=== PATIENT | female | born 1995 | race Caucasian/White ===

== ENCOUNTER 2018-06-18 16:50 | Emergency (ER) | payer OTHER ==
[2018-06-18 17:15] VITALS: BMI 21.9
--- NOTE | 2018-06-18 17:48 | PDOC ---
Attending Attestation - HPI HPI: 06/18/18 19:25 The patient is a 23-year-old female, A2, 17 weeks , with past medical history significant for Hepatitis B and 2 prior (16 weeks and 18 weeks) presents to the emergency department with abdominal pain. The patient reports pain to the suprapubic region since yesterday, that worsened earlier today. The patient states the pain is cramping and pressure in character, with an increase in pain post voiding. The patient indicates the pain is intermittent , stays for a while then goes away, with the severity of 4/10. The patient reports an additional concern of yeast infection for the past 2 days, no relief with cream with vaginal discharge and dysuria, denies vaginal bleeding or hematuria. Allergies: NKA Social history: No past or present use of tobacco, alcohol or recreational drug use reported. 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 MFM: Dr. Sung @ [facility]. The patient reports last appointment was 2 days ago, where she had an ultrasound and cervix measured, states everything was normal. - Physicial Exam PE: 06/18/18 19:00 GENERAL: The patient is in no acute distress. HEAD: Normal with no signs of trauma. EYES: PERRLA, EOMI, sclera anicteric, conjunctiva clear. ENT: Ears normal, nares patent, oropharynx clear without exudates. Moist mucous membranes. NECK: Normal range of motion, supple without lymphadenopathy, JVD, or masses. LUNGS: Breath sounds equal, clear to auscultation bilaterally. No wheezes, and no crackles. HEART:Regular rate and rhythm, normal S1 and S2 without murmur, rub or gallop. ABDOMEN: (+) Mild suprapubic tenderness, gravid abdomen. Soft, normoactive bowel sounds. No guarding, no rebound. No masses palpable. EXTREMITIES: Normal range of motion, no edema. No clubbing or cyanosis. No erythema, or tenderness. NEUROLOGICAL: Cranial nerves II through XII grossly intact. Normal speech. No focal neurological deficits. MUSCULOSKELETAL: Back non-tender to palpation, no CVA tenderness SKIN: Warm, Dry, normal turgor, no rashes or lesions noted. - Medical Decision Making 06/18/18 19:00 Documentation prepared by Desi Burt, acting as senior medical transcriptionist for Marline Schroeder MD. <Desi Burt - Last Filed: 06/18/18 19:25> - Resident Resident Name: Raymundo Marin - ED Attending Attestation I have performed the following: I have examined & evaluated the patient, The case was reviewed & discussed with the resident, I agree w/resident's findings & plan, Exceptions are as noted - Medical Decision Making 06/18/18 20:30 Laboratory Tests 06/18/18 06/18/18 06/18/18 18:04 18:04 18:04 WBC 9.8 Hgb 10.8 Hct 31.1 L D Plt Count 209 D BUN 9 Creatinine 0.4 L Beta HCG, Quant 52959.2 Urine Ketones Negative Urine Blood Negative Urine Nitrite Negative Ur Leukocyte Esterase 2+ H D Urine WBC (Auto) 109 Urine RBC (Auto) 2 Ur Epithelial Cells Rare Urine Bacteria Rare 23 yo F presenting to the ER with a complaint of suprapubic pain No flank pain No hematuria No vomiting on examination: suprapubic tenderness, no CVA tenderness Labs reveal UTI US 06/18/18 21:28 IMPRESSION: Normal single intrauterine with an average uterine age ( AUA) age of 17 weeks 2 days and a heart rate of 136 BPM. The study is otherwise unremarkable. Clinical impression: UTI, initial presentation follow up with OB AND MFM specialist Return to the ER for any other concerns or complaints <Marline Schroeder - Last Filed: 06/18/18 21:54>
--- NOTE | 2018-06-18 17:48 | PDOC ---
History of Present Illness - General Chief Complaint: Pain Stated Complaint: STOMACH PAIN/17 WKS - History of Present Illness Initial Comments: The patient is a 23F at 17wks by LMP w/ a PMH of HBV who presents to the ED for evaluation of lower abdominal pressure. The patient states that she has had 2 days of suprapubic pressure that is intermittent, radiates to her back, and is worse after she urinates. She endorses associated dysuria, urgency, and frequency. She denies fevers/chills, chest pain, SOB, rash, or sensation. Patient was seen by her MFM OBGYN on . Per the patient, there were no concerns. The patient has a history of spontaneous AB in the past. The patient presented with RLQ pressure in 2014 3wks s/p spontaneous AB and was found to have retention of products of conception. MFM: at [facility]: Dr. Kendra Green 06/18/18 20:45 Past History - Past Medical History Allergies/Adverse Reactions: Allergies Allergy/AdvReac Type Severity Reaction Status Date / Time No Known Allergies Allergy Verified 06/18/18 17:10 Home Medications: Ambulatory Orders Cephalexin Monohydrate [Keflex -] 500 mg PO BID 10 Days #20 capsule 06/18/18 Miconazole Nitrate [Monistat-7] 100 mg PV HS 7 Days #7 supp.vag 06/18/18 Tenofovir Disoproxil Fumarate [Viread] 300 mg PO DAILY 06/18/18 COPD: No - Reproductive History (#): 1 Para: 0 Spontaneous : 0 - Suicide/Smoking/Psychosocial Hx Smoking History: Never smoked Hx Alcohol Use: No Drug/Substance Use Hx: No Substance Use Type: None Review of Systems - Review of Systems Able to Perform ROS?: Yes Comments:: GENERAL/CONSTITUTIONAL: No fever or chills. No weakness HEAD, EYES, EARS, NOSE AND THROAT: No change in vision. No ear pain or discharge. No sore throat CARDIOVASCULAR: No chest pain or shortness of breath RESPIRATORY: No cough, wheezing, or hemoptysis GASTROINTESTINAL: No nausea, vomiting, diarrhea or constipation GENITOURINARY: per HPI MUSCULOSKELETAL: No joint or muscle swelling or pain. No neck or back pain SKIN: No rash NEUROLOGIC: No headache, vertigo, loss of consciousness, or change in strength/ sensation ENDOCRINE: No increased thirst. No abnormal weight change HEMATOLOGIC/LYMPHATIC: No anemia, easy bleeding, or history of blood clots ALLERGIC/IMMUNOLOGIC: No hives or skin allergy 06/18/18 17:51 Is the patient limited Spanish proficient: No *Physical Exam - Vital Signs Last Vital Signs Temp Pulse Resp BP Pulse Ox 99.3 F 80 20 111/55 L 99 06/18/18 17:10 06/18/18 17:10 06/18/18 17:10 06/18/18 17:10 06/18/18 17:10 - Physical Exam Comments: GENERAL: Awake, alert, and fully oriented, in no acute distress HEAD: No signs of trauma, normocephalic, atraumatic EYES: PERRL, EOMI, sclera anicteric, conjunctiva clear ENT: Hearing grossly normal, nares patent, oropharynx clear without exudates. Moist mucosa NECK: Normal ROM, supple, no lymphadenopathy LUNGS: No distress, speaks full sentences, clear to auscultation bilaterally HEART:Regular rate and rhythm, normal S1 and S2, no murmurs appreciated, peripheral pulses normal and equal bilaterally ABDOMEN: Soft, mild suprapubic TTP without guarding or rebound, normoactive bowel sounds. No guarding, no rebound. No masses EXTREMITIES : Normal inspection, Normal range of motion, no edema. No clubbing or cyanosis NEUROLOGICAL: Cranial nerves II through XII grossly intact. Normal speech, normal gait, no focal sensorimotor deficits SKIN: Warm, Dry, normal turgor, no rashes or lesions noted 06/18/18 17:52 ED Treatment Course - LABORATORY CBC & Chemistry Diagram: 06/18/18 18:04 06/18/18 18:04 Medical Decision Making - Medical Decision Making The patient is a 23F at 17w by LMP who presents for evaluation of suprapubic abdominal pain ED Course CMP, CBC, Beta-quant, UA, UCx Transabdominal pelvic US Patient states pain controlled at this time No leukocytosis Lytes wnl UA concerning for UTI -Will treat w/ Keflex 500mg PO BID for 10d 06/18/18 18:34 Pending U/S read for Dispo Plan for D/C if without acute finding with OB f/u Patient reports pain is well controlled Patient verbalized understanding U/S significant for single live intrauterine at 17w2d by US No acute pathology Dispo: Home w/ OBGYN f/u 06/18/18 20:04 *DC/Admit/Observation/Transfer Diagnosis at time of Disposition: Urinary tract infection affecting , Candidiasis of vagina during Abdominal pain Qualifiers: Abdominal location: lower abdomen, unspecified Qualified Code(s): R10.30 - Lower abdominal pain, unspecified - Discharge Dispostion Disposition: HOME Condition at time of disposition: Stable Decision to Admit order: No - Prescriptions Prescriptions: Cephalexin Monohydrate [Keflex -] 500 mg PO BID 10 Days #20 capsule Miconazole Nitrate [Miconazole 7] 100 mg VG DAILY 7 Days #7 supp.vag - Referrals Referrals: Joanne Shaver MD [Staff Physician] - - Patient Instructions Printed Discharge Instructions: DI for Abdominal Pain -- Early Additional Instructions: You were seen in the Emergency Room today for abdominal pain and pain with urination. You were found to have a urinary tract infection. Please review the handout provided at discharge. An antibiotic was sent to the pharmacy that you specified as well as an antifungal. Please take as directed. Follow up with your OBGYN within the next 1-3 days. Return to the Emergency Department if you develop fevers/chills, worsening symptoms, or any new concerning symptoms. - Post Discharge Activity
[2018-06-18 18:22] LABS: HEMATOCRIT 31.1 % (32.4-45.2); HEMOGLOBIN 10.8 GM/dL (10.7-15.3); MCH 31.1 pg (25.7-33.7); MCHC 34.7 g/dl (32.0-36.0); MEAN CELL VOLUME 89.6 fl (80-96); MEAN PLT VOLUME 10.1 fl (7.5-11.1); PLATELET COUNT 209 K/MM3 (134-434); RBC 3.47 M/mm3 (3.60-5.2); RDW 13.2 % (11.6-15.6); WHITE BLOOD COUNT 9.8 K/mm3 (4.0-10.0)
[2018-06-18 18:34] LABS: URINE APPEARANCE SLCLOUDY; URINE BILIRUBIN NEGATIVE (<2.0 mg/dL); URINE COLOR YELLOW; URINE GLUCOSE (UA) NEGATIVE (NEGATIVE); URINE KETONE NEGATIVE (NEGATIVE); URINE NITRITE NEGATIVE (NEGATIVE); URINE PROTEIN NEGATIVE (NEGATIVE); URINE UROBILINOGEN NEGATIVE mg/dL (0.2-1.0)
[2018-06-18 18:42] LABS: URINE LEUK ESTERASE 2+ (NEGATIVE)
[2018-06-18 18:46] LABS: EPI CELLS RARE /HPF (FEW); URINE BACTERIA RARE /hpf (NONE SEEN); URINE HYALINE CAST 3 /lpf; URINE MUCUS RARE
[2018-06-18 19:15] LABS: ALBUMIN 2.9 g/dl (3.4-5.0); ALK PHOS 59 U/L (45-117); ANION GAP 9 MMOL/L (8-16); BILIRUBIN,TOTAL 0.2 mg/dL (0.2-1); BLOOD UREA NITROGEN 9 mg/dL (7-18); CALCIUM 8.7 mg/dL (8.5-10.1); CHLORIDE 106 mmol/L (98-107); CO2 25 mmol/L (21-32); CREATININE 0.4 mg/dL (0.55-1.3); GLUCOSE,RANDOM 86 mg/dL (74-106); SGOT/AST 28 U/L (15-37); SGPT/ALT 64 U/L (13-61); SODIUM 140 mmol/L (136-145); TOT PROT 6.6 g/dl (6.4-8.2)
[2018-06-18] MEDS ORDERED: CEPHALEXIN MONOHYDRATE 500 MG CAPSULE (UD) PO ONE (20:11)
[2018-06-18] MEDS ORDERED: CEPHALEXIN MONOHYDRATE 500 MG CAPSULE (UD) ONE (20:22)
[2018-06-18 21:55] VITALS: BP 105/66; PULSE 72; TEMP 98
== END 2018-06-18 21:32 | disposition home or self-care (01) ==
LOC: JER 16:50
DX: O26.891 Other specified pregnancy related conditions, first trimester (principal); O23.32 Infections of other parts of urinary tract in pregnancy, second trimester; O98.812 Other maternal infectious and parasitic diseases complicating pregnancy, second trimester; B37.3 Candidiasis of vulva and vagina; Z3A.17 17 weeks gestation of pregnancy
CPT/HCPCS: 36415; 76815-TC; 80053; 81003; 81015; 84702; 85027; 87086; 99283-25

== ENCOUNTER 2018-11-17 04:40 | Inpatient (IN) | payer OTHER ==
[2018-11-17] MEDS: ELECTROLYTE-148 SOLN 1,000 ML IV SCH ×3 (05:00→11:43)
[2018-11-17 05:30] LABS: BASO % 0.3 % (0-2.0); EOS % 0.7 % (0-4.5); HEMATOCRIT 34.6 % (32.4-45.2); HEMOGLOBIN 11.7 GM/dL (10.7-15.3); MCH 31.3 pg (25.7-33.7); MCHC 33.9 g/dl (32.0-36.0); MEAN CELL VOLUME 92.4 fl (80-96); MEAN PLT VOLUME 9.4 fl (7.5-11.1); MONO % 6.1 % (3.8-10.2); NEUT % 73.9 % (42.8-82.8); PLATELET COUNT 286 K/MM3 (134-434); RBC 3.74 M/mm3 (3.60-5.2); RDW 14.2 % (11.6-15.6); WHITE BLOOD COUNT 12.6 K/mm3 (4.0-10.0)
[2018-11-17 05:44] LABS: INR 0.91 (0.83-1.09); PROTHROMBIN TIME (PATIENT) 10.7 SEC (9.7-13.0)
[2018-11-17] MEDS ORDERED: BUTORPHANOL TARTRATE 1 MG/ML VIAL ONE ×2 (05:45→05:46)
[2018-11-17 05:47] LABS: ACTIVATED PTT 25.7 SECONDS (25.2-36.5)
[2018-11-17] MEDS ORDERED: BUTORPHANOL TARTRATE 1 MG/ML VIAL IVPB ONE (05:48)
[2018-11-17 05:53] LABS: ANION GAP 10 MMOL/L (8-16); BLOOD UREA NITROGEN 8 mg/dL (7-18); CALCIUM 8.8 mg/dL (8.5-10.1); CHLORIDE 107 mmol/L (98-107); CO2 22 mmol/L (21-32); CREATININE 0.6 mg/dL (0.55-1.3); GLUCOSE,RANDOM 100 mg/dL (74-106); POTASSIUM 3.8 mmol/L (3.5-5.1); SODIUM 139 mmol/L (136-145)
--- NOTE | 2018-11-17 05:57 | HP ---
Past Medical History - Admission Chief Complaint: Uterine Contractions History of Present Illness: 23yo @ 38+wks by sugey with 11/27/18 LEYDI here with painful, regular contractions. No VB or LOF. +FM Preg c/b incompetent cervix with a 16 and 18wk loss. Had cerclage in this , removed one week ago. Was 80/4/-3 in the office earlier this week. 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: Alzheimer's, CVA, Dementia, Migraine, Multiple Sclerosis, Peripheral Neuropathy, Parkinson's, Seizure, Syncope, TIA, Vertigo, Other Cardiovascular: No: AFIB, Aneurysm, Aortic Insufficiency, Aortic Stenosis, CAD, CHF, Deep Vein Thrombosis, HTN, Hyperlipdemia, SD, Mitral Insufficiency, Mitral Stenosis, Murmur, Pulmonary Hypertension, Other Pulmonary: No: Asthma, Bronchitis, Cancer, COPD, O2 Dependent, Pneumonia, Previously Intubated, Pulmonary Embolus, Pulmonary Fibrosis, Sleep Apnea, Other Gastrointestinal: No: Ascites, Cancer, Constipation, Crohn's Disease, Diverticulitis, Diverticulosis, Esophageal Varices, Gastritis, GERD, GI Bleed, Hemorrhoids, Hiatal Hernia, Inflamatory Bowel Disease, Irritable Bowel Disease, Pancreatitis, Peptic Ulcer Disease, Ulcerative Colitis, Other Hepatobiliary: Yes: Hepatitis B Renal/: Yes: Renal Inusuff ...: 3 ...Para: 0 ...Term: 0 ...: 0 ...Spon : 2 ...EDC by Sono: 11/27/18 Heme/Onc: No: Anemia, B12 Deficiency, Bleeding Disorder, Cancer, Current Chemotherapy, Current Radiation Therapy, Hemochromatosis, Hypercoaguable State, Myeloproliferative Synd, Sickle Cell Disease, Sickle Cell Trait, Thrombocytopenia, Other Infectious Disease: Yes: Other Psych: No: Addictions, Anxiety, Bipolar, Depression, Panic, Psychosis, Schizophrenia, Other Musculoskeletal: No: Bursitis, Chronic low back pain, Hemiparesis, Hemiplegia, Osteoarthritis, Paraplegia, Other - Past Surgical History Hx Myomectomy: No Hx Transabdominal Cerclage: No - Smoking History Smoking history: Never smoked - Alcohol/Substance Use Hx Alcohol Use: No - Social History Usual Living Arrangement: Yes: With Spouse ADL: Independent History of Recent Travel: No Home Medications - Allergies Allergies/Adverse Reactions: Allergies Allergy/AdvReac Type Severity Reaction Status Date / Time No Known Allergies Allergy Verified 11/06/18 17:11 - Home Medications Home Medications: Ambulatory Orders Ferrous Sulfate 325 mg PO BID 09/09/18 Pnv No.95/Ferrous Fum/Folic AC [ Vitamin Tablet] 1 each PO DAILY Physical Exam - Maternity Vital Signs: Vital Signs Temperature 99.2 F 11/17/18 04:40 Pulse Rate 72 11/17/18 04:40 Respiratory Rate 20 11/17/18 04:40 Blood Pressure 120/70 11/17/18 04:40 O2 Sat by Pulse Oximetry (%) Constitutional: Yes: Well Nourished, No Distress, Calm Eyes: Yes: WNL, Conjunctiva Clear, EOM Intact HENT: Yes: WNL, Atraumatic, Normocephalic Neck: Yes: WNL, Supple, Trachea Midline Cardiovascular: Yes: WNL, Regular Rate and Rhythm, Other Breast(s): Yes: WNL - Abdominal Exam/OB Number of Fetuses: Single Contractions: Yes Regularity: Regular Intensity: Mod/Strong Monitor Mode: Auscultation (Fetoscope) Accelerations: Non-Uniform Decelerations: None - Vaginal Exam/OB Vaginal Bleediing: No Speculum Exam: No Dilatation (cm): 5 Effacement (%): 90 Presentation: Vertex/Position Station: -2 - Labs Lab Results: CBC, BMP 11/17/18 04:05 Problem List - Problems (1) Uterine contractions Code(s): WFD5136 - Assessment/Plan 23yo @ 38+wks here in labor Admit to L&D NPO/ice chips, IVFs Cat 1 tracing Stadol and epidural AROM/pitocin prn Anticipate Tracey Arndt
[2018-11-17] MEDS ORDERED: FENTANYL/BUPIVACAINE/NS/PF - PCEA - 50 ML DISP.SYRIN EP ONE ×2 (07:20→12:32)
[2018-11-17] MEDS ORDERED: BUPIVACAINE HCL/PF 0.25% (2.5MG/ML) 10 ML VIAL ONE ×2 (07:38→14:03)
[2018-11-17] MEDS: FENTANYL/BUPIVACAINE/NS/PF - PCEA - 50 ML DISP.SYRIN EP SCH ×2 (07:50→12:35)
[2018-11-17] MEDS ORDERED: NALOXONE HCL 0.4 MG/ML VIAL IVPUSH PRN (07:57)
[2018-11-17] MEDS ORDERED: OXYTOCIN 30 UNITS in 0.9% NS 30 UNIT/500 ML INFUS.BAG IVPB ONE (09:22)
[2018-11-17] MEDS ORDERED: OXYTOCIN 30 UNITS in 0.9% NS 30 UNIT/500 ML INFUS.BAG IVPB SCH (10:00)
--- NOTE | 2018-11-17 10:05 | PN ---
Progress Note (short form) - Note Progress Note: 23 yrs , 38 weeks onset LP since !.00AM AM , admitted in labor by Dr Arndt . GBS neg h/o s/p cerclage removed 11/03/18 , sono approx 8lbs Epidural Analgesia at 7.50 AM 9.05 AM 7cm/90 % /AROM clear moderate / Vx -1 FHR 120-130 cat-1 UC 6-7 min Selected Entries 11/17/18 11/17/18 11/17/18 09:00 09:15 09:54 Temperature 98.4 F Pulse Rate 66 75 Respiratory 20 Rate Blood Pressure 101/58 L 106/63 Plan pitocin augmentation started at 9.30AM ct trial of labor
--- NOTE | 2018-11-17 12:14 | PN ---
Progress Note, Labor Vaginal Exam #1 Labor Exam Date: 11/17/18 Labor Exam Time: 12:05 Heart Rate (range): 160--170 Dilatation: 9 Effacement (%): 100 Amniotic Membrane Status: Ruptured Presentation: Vertex/Position Station: 0 (0/+1) Remarks: FHR cat-1 Uc 2-3 min Selected Entries 11/17/18 11/17/18 11:15 12:01 Temperature 99.2 F Pulse Rate 88 Blood Pressure 109/70 Vaginal Exam #2 Labor Exam Date: 11/17/18 Labor Exam Time: 13:45 Heart Rate (range): 160 Dilatation: antlip Amniotic Membrane Status: Ruptured Presentation: Vertex/Position Station: +1 Remarks: fhr cat-1 uc 2-3 min Selected Entries Temp 98.7 11/17/18 11/17/18 13:30 13:45 Pulse Rate 116 H 102 H Blood Pressure 116/66 109/63 Vaginal Exam #3 Labor Exam Date: 11/17/18 Labor Exam Time: 14:45 Heart Rate (range): 160 Dilatation: 10 Effacement (%): 100 Amniotic Membrane Status: Ruptured Presentation: Vertex/Position Station: +2 (while pushing) Remarks: fhr cat-1 uc 2-3 min encourage to push Selected Entries 11/17/18 11/17/18 14:14 14:30 Temperature 98.7 F Pulse Rate 88 Blood Pressure 106/61
[2018-11-17] MEDS ORDERED: OXYTOCIN 20 UNITS in 0.9% NS 20 UNIT/1,000 ML INFUS.BAG IV ONE (12:28)
--- NOTE | 2018-11-17 13:47 | PN ---
Progress Note (short form) - Note Progress Note: note I reviewed the chart she was taking Inj [place] weekly until 35 weeks cerclage done at 16 weeks , removed on 11/03/18 pt as h/o HepSAg pos, pt was seen by ID Dr Lopez at [facility] , Viral load was done as per patient , she was told notto be concerned she is taking Rx Tenofovir Disoroxil 300 mg po daily. h/o blood transfusion after sp Ab due to hemorrhage . I informed the patient about breast feeding with Tenofovir after inquiring from pharmacist benefits of outweigh risk . In epocrates it is mentioned if crack nipples, or bleeding form nipples , should be avoided .
[2018-11-17] MEDS ORDERED: LIDOCAINE HCL 1% PRESERVATIVE FREE - 30ML VIAL ONE (15:26)
[2018-11-17] MEDS: OXYTOCIN 20 UNITS in 0.9% NS 20 UNIT/1,000 ML INFUS.BAG IV SCH (16:25)
[2018-11-17] MEDS ORDERED: BENZOCAINE 20% 57 GM BOTTLE TP PRN (17:03)
[2018-11-17] MEDS ORDERED: BENZOCAINE 28 GM HEMORRHOIDAL OINTMENT TP PRN (17:03)
[2018-11-17] MEDS ORDERED: WITCH HAZEL 50% (TUCKS) 40 PAD/JAR PAD TP PRN (17:03)
[2018-11-17] MEDS ORDERED: BISACODYL 10 MG SUPP.RECT RC PRN (17:03)
[2018-11-17] MEDS ORDERED: METHYLERGONOVINE MALEATE 0.2 MG/1 ML AMP IM PRN (17:03)
[2018-11-17 17:11] LABS: ARTERIAL BLOOD GAS BASE EXCESS -4.6 meq/l (-2-2); ARTERIAL BLOOD GAS pH 7.26 (7.35-7.45)
--- NOTE | 2018-11-17 17:14 | PN ---
Delivery - Delivery Vaginal Delivery: No Problems, Spontaneous (baby delievered vx presentation, ROSEMARY position, , shoulder delievered without difficulty, placenta & membranes delievered completely.median episitomy was given which was sutured in layers with chr catgut #2/0 under local anesthesiia ( 1% xylocaine).sponge count was correct. .pr exam mucosa & sphincter intact) Type of Anesthesia: Local, Epidural Episiotomy/Laceration: Midline EBL (cc): 350 Delivery, Single - Stages of Labor Date 1st Stage Initiatied: 11/17/18 Time 1st Stage Initiated: 01:00 Date 2nd Stage Initiated: 11/17/18 Time 2nd Stage Initiated: 14:45 Date of Delivery: 11/17/18 Time of Delivery: 16:16 Date Placenta Delivered: 11/17/18 Time Placenta Delivered: 16:25 Placenta: Yes: Spontaneous, Uterine Exploration - Condition of Infant Tax Analyst/Cremator Present: No Infant Gender: Female Weight: 8 lb 6 oz Position: Right, OA - 1 Minute Total Score: 9 5 Minutes Total Score: 9 - [place] Feeding Plan Initial Plan: Elected not to breastfeed exclusively throughout hospitalization Remarks - Remarks Remarks: 23 yrs , 38.4 weeks admitted in labor . gbs neg pnc at [address] [place] [address] . h/o cervical cerclage, removal on 11/03/18 h/o harsha inj weekly until 35 weeks . h/o betametasone x2 doses at 28 weeks , h/o ptl rx brethine h/o HBSAg pos , rx with anti viral Tenofovir 300 mg po daily . Intrapartum course uneventful
[2018-11-17 17:19] LABS: ARTERIAL BLOOD GAS PO2 19.6 mmHg (80-100)
[2018-11-17 17:20] LABS: ARTERIAL BLD GAS O2 SATURATION 31.2 % (90-98.9)
[2018-11-17 17:26] LABS: VENOUS PH 7.32 (7.32-7.42)
[2018-11-17 17:27] LABS: VENOUS PC02 43.4 mmHg (38-52); VENOUS PO2 22.7 mmHg (28-48)
[2018-11-17] MEDS: IBUPROFEN 600 MG TABLET (FP) PO PRN ×2 (17:45→22:34)
[2018-11-17] MEDS ORDERED: IBUPROFEN 600 MG TABLET (FP) PO ONE (17:45)
[2018-11-17] MEDS: FERROUS SO4 325 MG TABLET (FP) PO SCH (18:46)
[2018-11-17 20:39] LABS: URINE APPEARANCE CLEAR; URINE BILIRUBIN NEGATIVE (<2.0 mg/dL); URINE COLOR LTYELLOW; URINE GLUCOSE (UA) NEGATIVE (NEGATIVE); URINE KETONE TRACE (NEGATIVE); URINE LEUK ESTERASE NEGATIVE (NEGATIVE); URINE NITRITE NEGATIVE (NEGATIVE); URINE PROTEIN NEGATIVE (NEGATIVE); URINE UROBILINOGEN NEGATIVE mg/dL (0.2-1.0)
[2018-11-17 20:47] LABS: URINE MUCUS RARE
[2018-11-17] MEDS: oxyCODONE HCL 5 MG TABLET PO PRN (22:33)
[2018-11-17] MEDS: ACETAMINOPHEN 325 MG TABLET (FP) PO PRN (22:34)
[2018-11-17] MEDS ORDERED: CEFAZOLIN 2 GM/D5W 2 GM/50 ML ML IVPB ONE (23:15)
[2018-11-18] MEDS: IBUPROFEN 600 MG TABLET (FP) PO PRN ×3 (02:14→13:54)
[2018-11-18] MEDS: ACETAMINOPHEN 325 MG TABLET (FP) PO PRN ×2 (02:14→06:06)
[2018-11-18] MEDS: oxyCODONE HCL 5 MG TABLET PO PRN ×2 (06:06→13:52)
[2018-11-18] MEDS: OXYTOCIN 20 UNITS in 0.9% NS 20 UNIT/1,000 ML INFUS.BAG IV SCH (06:09)
--- NOTE | 2018-11-18 07:27 | PN ---
Progress Note (short form) - Note Progress Note: ppd1 , had difficulty voiding last night , has de la cruz, no excess vaginal bleeding CBC, BMP 11/17/18 04:05 11/17/18 04:05 Last Vital Signs Temp Pulse Resp BP Pulse Ox 98.0 F 76 18 110/58 L 100 11/18/18 06:00 11/18/18 06:00 11/18/18 06:00 11/18/18 06:00 11/17/18 17:15 abdomen soft, uterus firm, non tender lochai mild pernium swellen plan d/c de la cruz today sitz bath ambulate
[2018-11-18 08:11] LABS: BASO % 0.2 % (0-2.0); EOS % 0.3 % (0-4.5); HEMATOCRIT 25.6 % (32.4-45.2); HEMOGLOBIN 8.7 GM/dL (10.7-15.3); LYMPH % 18.5 % (8-40); MCH 31.7 pg (25.7-33.7); MCHC 33.9 g/dl (32.0-36.0); MEAN CELL VOLUME 93.5 fl (80-96); MEAN PLT VOLUME 9.4 fl (7.5-11.1); MONO % 6.9 % (3.8-10.2); NEUT % 74.1 % (42.8-82.8); PLATELET COUNT 239 K/MM3 (134-434); RBC 2.74 M/mm3 (3.60-5.2); RDW 14.3 % (11.6-15.6); WHITE BLOOD COUNT 15.8 K/mm3 (4.0-10.0)
[2018-11-18] MEDS: FERROUS SO4 325 MG TABLET (FP) PO SCH ×2 (08:17→17:24)
[2018-11-18] MEDS: PRENATAL VITAMINS W/ FOLIC ACID TABLET (FP) PO SCH (09:30)
[2018-11-18] MEDS ORDERED: SENNOSIDES/DOCUSATE COMBO (SENNA PLUS) TABLET (UD) PO PRN (22:00)
[2018-11-19 08:25] VITALS: BP 109/68; PULSE 75; TEMP 98.3
--- NOTE | 2018-11-19 08:40 | DS ---
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 Signs: Vital Signs Temperature 98.3 F 11/19/18 08:24 Pulse Rate 75 11/19/18 08:24 Respiratory Rate 20 11/19/18 08:24 Blood Pressure 109/68 11/19/18 08:24 O2 Sat by Pulse Oximetry (%) 100 11/17/18 17:15 Constitutional: Yes: Well Nourished, Pallor Eyes: Yes: WNL HENT: Yes: WNL Neck: Yes: WNL Cardiovascular: Yes: WNL, Regular Rate and Rhythm Respiratory: Yes: WNL, CTA Bilaterally Gastrointestinal: Yes: WNL, Normal Bowel Sounds, Soft, Other (h/o Hepatitis B , rx po Tenofovir daily) ...Rectal Exam: Yes: WNL, Sphincter Tone Normal Renal/: Yes: WNL, Other (h/o retained urine post delivery, de la cruz catheter placed for 12 hrs , after that voiding without difficulty). No: CVA Tenderness - Left, CVA Tenderness - Right ....Post : Yes: Uterus firm, Uterus non-tender, Moderate lochia rubra ( episiotomy healing well . vulva edema has subsided c/o perineal soreness) Breast(s): Yes: WNL (not BF) Musculoskeletal: Yes: WNL Extremities: Yes: WNL. No: Calf Tenderness Edema: LLE: 1+, RLE: 1+ Integumentary: Yes: WNL Neurological: Yes: WNL, Alert, Oriented ...Motor Strength: WNL Psychiatric: Yes: WNL, Alert, Oriented Labs: CBC, BMP 11/18/18 07:00 11/17/18 04:05 Delivery - Delivery Vaginal Delivery: No Problems, Spontaneous (baby delievered vx presentation, ROSEMARY position, , shoulder delievered without difficulty, placenta & membranes delievered completely.median episitomy was given which was sutured in layers with chr catgut #2/0 under local anesthesiia ( 1% xylocaine).sponge count was correct. .pr exam mucosa & sphincter intact) Type of Anesthesia: Local, Epidural Episiotomy/Laceration: Midline EBL (cc): 350 Delivery, Single - Stages of Labor Date 1st Stage Initiatied: 11/17/18 Time 1st Stage Initiated: 01:00 Date 2nd Stage Initiated: 11/17/18 Time 2nd Stage Initiated: 14:45 Date of Delivery: 11/17/18 Time of Delivery: 16:16 Time Placenta Delivered: 16:25 Placenta: Yes: Spontaneous, Uterine Exploration - Condition of Infant Registered Radiation Therapist/Water Plumber Present: No Infant Gender: Female Weight: 8 lb 6 oz Position: Right, OA Total Hours ROM (Hrs/Mins): 7/20 - 1 Minute Total Score: 9 5 Minutes Total Score: 9 - [place] Feeding Plan Initial Plan: Elected not to breastfeed exclusively throughout hospitalization Remarks - Remarks Remarks: 23 yrs , 38.4 weeks admitted in labor . gbs neg pnc at [address] [place] [address] . h/o cervical cerclage, removal on 11/03/18 h/o harsha inj weekly until 35 weeks . h/o betametasone x2 doses at 28 weeks , h/o ptl rx brethine h/o HBSAg pos , rx with anti viral Tenofovir 300 mg po daily . Intrapartum course uneventful . Post pericare counselled Post anemia counselled discharge 11/19/18 Discharge Summary Reason For Visit: LABOR Current Active Problems Anemia (Acute) H/O type B viral hepatitis (Acute) History of cervical cerclage, currently (Acute) Normal vaginal delivery (Acute) with 38 completed weeks gestation (Acute) Urine retention (Acute) Uterine contractions (Acute) Condition: Stable - Instructions Diet, Activity, Other Instructions: Post Instructions DIET: Continue good diet high in protein, calcium, and iron rich foods. Drink at least eight (8) glasses of water daily in addition to other fluids. ___ Regular diet, high iron diet MEDICATIONS: Continue vitamins and iron as previously directed. Motrin and Tylenol may be taken for minor discomfort. ACTIVITY: Mild to moderate exercise may be started in two (2) weeks. Take frequent rest periods. Resume normal activity after six (6) week check up. WOUND CARE OF OPERATIVE SITE: Continue use of perineal bottle until vaginal discharge stops. Keep area clean. Shower daily. Keep abdominal wound dry. Report any drainage or redness to physician. Tub baths, tampons and douches are not permitted for 6 weeks.. SITZ BATHS PRN FOR Perineal pain _ct Bottle feeding BREAST CARE: (For those that are not breast feeding): If engorgement occurs: Wear tight fitting bra. Take Tylenol or Motrin for pain. Apply cold packs (ice in bags to each breast ) FAMILY PLANNING: There are many control alternatives to pursue and they should be discussed at your first office visit. You may resume sexual activity after your six (6) week check up. (Remember, breast feeding is not a contraceptive) NEXT PHYSICIAN APPOINTMENT: Be certain to call for a six (6) week appointment, unless otherwise directed. Follow with your Infectious Disease Specialist for follow up. Call Clinic or got to Emergency Dept if you have any of the following: Heavy vaginal bleeding Painful urination Leg pain Unusual odor noted to vaginal bleeding High fever Red streaking noted on breast return to clinic in 6 weeks for check. call [facility] for appointment. [phone] Referrals: Joanne Shaver MD [Staff Physician] - Disposition: HOME - Home Medications Comprehensive Discharge Medication List: Ambulatory Orders Ferrous Sulfate 325 mg PO BID 09/09/18 Pnv No.95/Ferrous Fum/Folic AC [ Vitamin Tablet] 1 each PO DAILY Tenofovir Disoproxil Fumarate 300 mg PO DAILY 11/17/18 Acetaminophen [Tylenol .Regular Strength -] 650 mg PO Q3H PRN tablet 11/18/18 Benzocaine [Americaine 20% [place] -] 1 spray TP DAILY PRN bottle 11/18/18 Ferrous Sulfate [Feosol] 325 mg PO BIDWM #60 tab 11/18/18 Ibuprofen [Motrin -] 200 mg PO Q4H PRN tablet 11/18/18 Vitamins (Sjr) - 1 tab PO DAILY #30 tablet 11/18/18 Witch [place] 50% (Tucks) [Tucks Pads -] 1 pad TP DAILY PRN pad 11/18/18
[2018-11-19] MEDS: FERROUS SO4 325 MG TABLET (FP) PO SCH (09:25)
[2018-11-19] MEDS: PRENATAL VITAMINS W/ FOLIC ACID TABLET (FP) PO SCH (09:25)
== END 2018-11-19 13:15 | disposition home or self-care (01) | DRG 560 ==
LOC: JLDR 04:40 → J3W 17:54
PROVIDERS: ADMIT Obstetrics & Gynecology; ATTEND Obstetrics & Gynecology
PROC: 10E0XZZ Delivery of Products of Conception, External Approach (ICD-10-PCS; principal; 2018-11-17)
PROC: 0W8NXZZ Division of Female Perineum, External Approach (ICD-10-PCS; 2018-11-17)
PROC: 0T9B70Z Drainage of Bladder with Drainage Device, Via Natural or Artificial Opening (ICD-10-PCS; 2018-11-17)
DX: O34.33 Maternal care for cervical incompetence, third trimester (principal); O75.89 Other specified complications of labor and delivery; R33.9 Retention of urine, unspecified; O99.02 Anemia complicating childbirth; D64.9 Anemia, unspecified; Z3A.38 38 weeks gestation of pregnancy; Z37.0 Single live birth; Z86.19 Personal history of other infectious and parasitic diseases
CPT/HCPCS: 36415; 36600; 59409; 80048; 81003; 81015; 82803; 85025; 85610; 85730; 86593; 86850; 86900; 86901; 87086; 87389